=== PATIENT | female | born 1980 | race Caucasian/White ===

== ENCOUNTER 2019-09-26 19:27 | Emergency (ER) | payer MEDICAID ==
[~2019-09-26] VITALS: Ht 167.6 cm; Wt 52.3 kg
[2019-09-26 20:21] LABS: CLARITY,URINE CLEAR (Clear); COLOR,URINE YELLOW (Yellow); GLUCOSE, URINE NEGATIVE (Neg); KETONES,URINE NEGATIVE (Neg); LEUKOCYTE ESTERASE ,URINE NEGATIVE (Neg); NITRITES, URINE NEGATIVE (Neg); OCCULT BLOOD,URINE MODERATE (Neg); PH,URINE 6.5 (4.8-8.0); PROTEIN,URINE NEGATIVE (Neg); URINE HCG NEGATIVE (NEG); UROBILINOGEN,URINE 0.2 E.U/dL (0.2-1.0)
[2019-09-26 20:22] LABS: UA COLLECTION TYPE NON-SPECIFIED
[2019-09-26 20:22] LABS: BASOPHILS % (AUTO) 0.8 % (0-1); EOSINOPHILS # (AUTO) 0.2 X10'3 (0-0.9); EOSINOPHILS % (AUTO) 3.3 % (0-6); HEMATOCRIT 39.8 % (35.0-45.0); HEMOGLOBIN 13.6 g/dl (12.0-16.0); LYMPHOCYTES # (AUTO) 1.7 X10'3 (1.1-4.8); LYMPHOCYTES % (AUTO) 32.7 % (21-51); MEAN CORPUSCULAR HEMOGLOBIN 32.3 PG (27.0-31.0); MEAN CORPUSCULAR HGB CONC 34.2 g/dL (33.0-36.5); MEAN CORPUSCULAR VOLUME 94.3 FL (78-98); MEAN PLATELET VOLUME 7.9 FL (7.4-10.4); MONOCYTES # (AUTO) 0.2 X10'3 (0-0.9); MONOCYTES % (AUTO) 3.6 % (2-12); NEUTROPHILS # (AUTO) 3.1 X10'3 (1.8-7.7); NEUTROPHILS % (AUTO) 59.6 % (42-75); PLATELET COUNT 232 X10'3 (140-440); RED BLOOD COUNT 4.22 X10'6 (4.20-5.60); RED CELL DISTRIBUTION WIDTH 13.6 % (11.5-14.5); WHITE BLOOD COUNT 5.1 X10'3 (4.5-11.0)
[2019-09-26 20:23] LABS: BACTERIA,URINE FEW /HPF (Neg); SQUAMOUS EPITHELIAL CELL,UR FEW /LPF (FEW); WBC,URINE 0-4 /HPF (0-4)
[2019-09-26 20:33] LABS: ALANINE AMINOTRANSFERASE 34 U/L (12-78); ALBUMIN 3.8 G/DL (3.4-5.0); ALBUMIN/GLOBULIN RATIO 1.2 (1.1-1.5); ALKALINE PHOSPHATASE 80 IU/L (46-116); ANION GAP 6 (8-16); ASPARTATE AMINO TRANSFERASE 19 U/L (10-37); BILIRUBIN,TOTAL 0.2 MG/DL (0.1-1.0); BLOOD UREA NITROGEN 24 MG/DL (7-18); BUN/CREATININE RATIO 19.2 (6.6-38.0); CALCIUM 9.3 MG/DL (8.5-10.1); CHLORIDE 107 MMOL/L (99-107); CREATININE 1.25 MG/DL (0.40-0.90); GLUCOSE 95 MG/DL (70-104); POTASSIUM 4.1 MMOL/L (3.5-5.1); SODIUM 141 MMOL/L (135-145); TOTAL CARBON DIOXIDE 27.8 MMOL/L (24-32); TOTAL PROTEIN 6.9 G/DL (6.4-8.2); eGFR 47 ML/MIN
[2019-09-26] MEDS ORDERED: tamsulosin 0.4mg capsule PO ONE (21:15)
[2019-09-26] MEDS ORDERED: meperidine/PF 50mg/ml syringe IV ONE (21:15)
[2019-09-26] MEDS ORDERED: normal saline 1000ML IV soln IVB ONE (21:15)
[2019-09-26] MEDS ORDERED: ketorolac trometh. 30mg/ml inj. IV ONE (21:15)
[2019-09-26] MEDS ORDERED: diphenhydrAMINE 50 mg/ml inj IV ONE (22:00)
--- NOTE | 2019-09-26 23:14 | NUR ---
PER EDMD ENRIQUEZ, MAY ORDER ZOFRAN 4MG IV X1 DOSE NOW FOR PT NAUSEA. MEDICATION ORDERED.
[2019-09-26] MEDS ORDERED: ondansetron/PF 4mg/2ml inj IV ONE (23:15)
[2019-09-27] MEDS ORDERED: diphenhydrAMINE 50 mg/ml inj IV ONE (00:10)
[2019-09-27] MEDS ORDERED: FLO0.4C PO (01:06)
[2019-09-27] MEDS ORDERED: NAPR-56 PO (01:06)
[2019-09-27] MEDS ORDERED: HYDR-4383 PO (01:06)
[2019-09-27 01:10] VITALS: BP 105/56
[2019-09-27] MEDS ORDERED: ondansetron/PF 4mg/2ml inj IV ONE (01:15)
== END 2019-09-27 01:30 | disposition home or self-care (01) ==
LOC: ER 19:29
DX: N23 Unspecified renal colic (principal); F17.200 Nicotine dependence, unspecified, uncomplicated; Z98.890 Other specified postprocedural states; Z88.8 Allergy status to other drugs, medicaments and biological substances; Z79.899 Other long term (current) drug therapy
CPT/HCPCS: 36415; 74018; 74176; 80053; 81001; 81025; 85025; 85610; 96374; 96375; 96376; 99284; J1200; J1885; J2175; J2405; J7030